=== PATIENT | male | born 1955 | race Caucasian/White ===

== ENCOUNTER 2018-11-17 16:16 | Outpatient (REF) | payer BC, SELFPAY ==
[2018-11-17 22:52] LABS: COMMENT (LAB VIEW ONLY) 154.57 mg/dL; Microalb ug/mg Crea 14.3 ug/mg Cr
== END 2018-11-17 16:36 ==
LOC: NCHCN 16:16
PROVIDERS: PCP Internal Medicine; Visit Provider Family Medicine
DX: E11.9 Type 2 diabetes mellitus without complications (principal)
CPT/HCPCS: 82043; 82570

== ENCOUNTER 2019-04-07 13:25 | Outpatient (REF) | payer BC, SELFPAY ==
[2019-04-07 21:23] LABS: Anion Gap 12.4 mmol/L (3-11); BUN 14 mg/dL (7-18); CO2 24.6 mmol/L (21.0-32.0); CREATININE 1.04 mg/dL (0.70-1.30); Calcium 8.8 mg/dL (8.5-10.1); Chloride 102 mmol/L (98-107); Glucose 121 mg/dL (70-100); Potassium 4.1 mmol/L (3.5-5.1); Sodium 139 mmol/L (136-145)
== END 2019-04-07 13:45 ==
LOC: NCHCN 13:25
PROVIDERS: PCP Internal Medicine; Visit Provider Family Medicine
DX: I10 Essential (primary) hypertension (principal)
CPT/HCPCS: 80048

== ENCOUNTER 2019-12-15 09:46 | Outpatient (REF) | payer BC, SELFPAY ==
[2019-12-15 22:13] LABS: Hemoglobin A1C 6.8 % (3.8-5.6)
[2019-12-15 22:15] LABS: ALT 26 U/L (16-63); AST 18 U/L (15-37); Alkaline Phosphatase 44 U/L (46-116); Anion Gap 11.3 mmol/L (3-11); BUN 22 mg/dL (7-18); Bilirubin, Total 0.7 mg/dL (0.2-1.0); CO2 24.7 mmol/L (21.0-32.0); CREATININE 1.15 mg/dL (0.70-1.30); Calculated LDL 76 mg/dL (<100); Chloride 104 mmol/L (98-107); Cholesterol 148 mg/dL (<200); Glucose 191 mg/dL (74-106); HDL Cholesterol 57 mg/dL (40-60); Potassium 4.8 mmol/L (3.5-5.1); Sodium 140 mmol/L (136-145); Total Protein 6.7 g/dL (6.4-8.2); Triglyceride 75 mg/dL (<150)
== END 2019-12-15 10:06 ==
LOC: NCHCN 09:46
PROVIDERS: PCP Internal Medicine; Visit Provider Family Medicine
DX: E11.9 Type 2 diabetes mellitus without complications (principal); I10 Essential (primary) hypertension
CPT/HCPCS: 80053; 80061; 83036

== ENCOUNTER 2020-10-04 10:15 | Outpatient (REF) | payer BC, SELFPAY ==
[2020-10-04 13:39] LABS: COMMENT (LAB VIEW ONLY) 122.89 mg/dL; Microalb ug/mg Crea 8.9 ug/mg Cr
== END 2020-10-04 10:16 | disposition home or self-care (01) ==
LOC: NCHCN 10:15
PROVIDERS: PCP Internal Medicine; Visit Provider Family Medicine
DX: E11.69 Type 2 diabetes mellitus with other specified complication (principal)
CPT/HCPCS: 82043; 82570

== ENCOUNTER 2021-02-03 18:49 | Outpatient (REF) | payer OTHER, SELFPAY ==
[2021-02-01 22:14] LABS: ALT 37 U/L (16-63); AST 15 U/L (15-37); Albumin 4.4 g/dL (3.4-5.0); Alkaline Phosphatase 61 U/L (46-116); Anion Gap 14.9 mmol/L (3-11); BUN 16 mg/dL (7-18); Bilirubin, Total 0.6 mg/dL (0.2-1.0); CO2 22.1 mmol/L (21.0-32.0); CREATININE 1.2 mg/dL (0.70-1.30); Calcium 9.5 mg/dL (8.5-10.1); Calculated LDL 87 mg/dL (<100); Chloride 103 mmol/L (98-107); Cholesterol 168 mg/dL (<200); Glucose 125 mg/dL (74-106); HDL Cholesterol 53 mg/dL (40-60); Potassium 4.1 mmol/L (3.5-5.1); Sodium 140 mmol/L (136-145); Total Protein 7.3 g/dL (6.4-8.2); Triglyceride 143 mg/dL (<150); Vitamin B12 577 pg/mL (193-986)
== END 2021-02-03 18:50 | disposition home or self-care (01) ==
LOC: NCHCN 18:49
PROVIDERS: PCP Internal Medicine; Visit Provider Family Medicine
DX: I10 Essential (primary) hypertension (principal); E66.9 Obesity, unspecified; E11.65 Type 2 diabetes mellitus with hyperglycemia
CPT/HCPCS: 80053; 80061; 82607

== ENCOUNTER 2021-08-29 17:55 | Outpatient (REF) | payer OTHER, SELFPAY ==
[2021-08-29 20:27] LABS: COMMENT (LAB VIEW ONLY) 207.46 mg/dL
== END 2021-08-29 17:56 | disposition home or self-care (01) ==
LOC: NCHCN 17:55
PROVIDERS: PCP Internal Medicine; Visit Provider Family Medicine
DX: E11.8 Type 2 diabetes mellitus with unspecified complications (principal)
CPT/HCPCS: 82043; 82570

== ENCOUNTER 2022-01-04 09:42 | Emergency (ER) | payer OTHER, SELFPAY ==
[2022-01-04 09:59] VITALS: BP 149/69; PULSE 95; RESP 16; TEMP 37.1; O2SAT 99
--- NOTE | 2022-01-04 10:27 | ED.GENADUL_ITS ---
Discharge Plan Disposition Patient Disposition: HOME Condition: Stable Discharge Details Clinical Impression: Subconjunctival hemorrhage Primary Care Provider: [facility] ED Provider: Rahul Rowland Home Meds and New Rx's Prescriptions: Continued atorvastatin 20 mg Tablet 20 mg PO DAILY amlodipine 5 mg Tablet 5 mg PO DAILY losartan-hydrochlorothiazide 100-25 mg Tablet 1 tab PO DAILY metformin 1,000 mg Tablet 1,000 mg PO BID insulin glargine [Lantus Solostar U-100 Insulin] 100 unit/mL (3 mL) Insulin Pen 38 unit SUBCUT QAM Ozempic 1 mg/dose (4 mg/3 mL) Pen Injector 1 mg SUBCUT QWEEK multivitamin Tablet 1 tab PO DAILY cholecalciferol (vitamin D3) [Vitamin D3] 10 mcg (400 unit) Tablet 600 unit PO DAILY Discharge Instructions Instructions: Subconjunctival Hemorrhage (ED) Additional Instructions: Please avoid rubbing your eyes. You may use [id number] eyedrops for symptomatic control as directed. Watch for new or worsening symptoms and return to the ER for any concerns. I do recommend reaching out to your my care team on Thursday to discuss your ER visit and need for outpatient reevaluation Medical Decision Making 66-year-old gentleman, not anticoagulated, presents for evaluation of a red eye on the right side that began after he blew his nose. He denies any pain or visual changes. He reports mild irritation. He denies gum bleeding when he brushes his teeth, petechiae rash, blood in his urine or stool. Clinically he appears well, nontoxic. Visual acuities obtained, please see RN note. Again he denies any visual changes. He does not wear contacts or glasses. Fluorescein used, no uptake. Examination is consistent with a subconjunctival hemorrhage. Standard discharge and return precautions were provided. Patient understands, is agreeable to this plan, and has no additional questions or concerns upon discharge. This documentation was generated using [employer] system, please disregard any oddities of phrase or misspellings. HPI General Mode of arrival: ambulatory . Date/Time Provider Initiated Documentation: 01/04/22 10:18 . Limitations to Documentation: no limitations . Information obtained by: patient . History of Present Illness 66 year old M pr esents to the emergency department with the chief complaint of R eye irritation, described as mild, with intensity rated at 2. Quality is described as other (Irritation), and is localized to the eyes and right. Patient reports no radiation. Patient started experiencing this hour(s) (1.5) and it has been constant. No relieving factors improve symptom(s), No exacerbating factors reported . Patient notes no other symptoms.. Patient did receive the following treatments prior to arrival, none Related Data Home Medications Medication Instructions Recorded Confirmed amlodipine 5 mg tablet 5 mg PO DAILY 01/04/22 01/04/22 atorvastatin 20 mg tablet 20 mg PO DAILY 01/04/22 01/04/22 cholecalciferol (vitamin D3) 10 600 unit PO DAILY 01/04/22 01/04/22 mcg (400 unit) tablet (Vitamin D3) insulin glargine 100 unit/mL (3 38 unit subcut QAM 01/04/22 01/04/22 mL) subcutaneous pen (Lantus Solostar U-100 Insulin) losartan 100 1 tab PO DAILY 01/04/22 01/04/22 mg-hydrochlorothiazide 25 mg tablet metformin 1,000 mg tablet 1,000 mg PO BID 01/04/22 01/04/22 multivitamin 1 tab PO DAILY 01/04/22 01/04/22 semaglutide 1 mg/dose (4 mg/3 mL) 1 mg subcut QWEEK 01/04/22 01/04/22 subcutaneous pen injector (Ozempic) Allergies Allergy/AdvReac Type Severity Reaction Status Date / Time No Known Allergies Allergy Unverified 01/04/22 10:23 General Stated Complaint: EyeProblem ISABELLA: 4 Review of Systems Constitutional Constitutional: Denies headache(s) Eyes Eyes: Denies blurry vision, Denies change in vision, Denies eye discharge, Reports irritation and Denies eye pain ENT Ears, Nose, Mouth, and Throat: Denies headache(s) Integumentary/Breasts Skin/Breast: Denies rash Neurologic Neurologic: Denies headache(s) Hematologic/Lymphatic Hematologic/Lymphatic: Denies easy bleeding and Reports easy bruising PFSH All Active Problems Subconjunctival hemorrhage (Acute) Social History Smoking/Tobacco Use Status: Never Smoking risk assessment performed?: Yes Drug use: Occasionally Substance use type: marijuana Additional Social history: unable to ask d/t lack of privacy Exam Const General: cooperative, healthy appearing, comfortable and no acute distress Orientation: alert, awake and oriented x3 HENMT Head: normal to inspection, normocephalic and atraumatic Face and sinus: normal facial exam Mouth: moist mucous membranes Eyes Alignment and Position: alignment normal Periorbital: periorbital findings normal Eyelids: eyelids normal Conjunctivae: conjunctival abnormality right subconjunctival hemorrhage Sclera: sclerae normal Cornea: corneas normal and fluorescein used Pupils: PERRL EOM: EOM intact bilaterally Direct ophthalmoscopy: normal light reflex Neck Neck: normal visual inspection, full ROM, no meningeal signs, trachea midline and supple Resp Effort & Inspection: normal respiratory effort and able to speak in complete sentences Skin General skin exam: no rashes or lesions noted and other (No petechiae rash) Neuro General: patient alert, patient awake, moves all extremities and no focal motor deficits Sensory Exam: no sensory deficits noted Psych Appearance: grossly normal Mental Status: mental status grossly normal Course Vital Signs Vital signs: Pain Level 0 01/04/22 09:59
== END 2022-01-04 11:07 | disposition home or self-care (01) ==
PROVIDERS: Emergency Provider Physician Assistant; PCP Internal Medicine
DX: H11.31 Conjunctival hemorrhage, right eye (principal)
CPT/HCPCS: 99282

== ENCOUNTER 2022-02-27 21:04 | Outpatient (REF) | payer OTHER, SELFPAY ==
[2022-02-27 15:37] LABS: Abs Immature Grans 0.05 10^3/uL (0.0-0.06); Absolute Basophil Count 0.03 10^3/uL (0.0-0.2); Absolute Eosinophil Count 0.05 10^3/uL (0.0-0.7); Absolute Lymphocyte Count 1.68 10^3/uL (1.2-3.4); Absolute Monocyte Count 0.55 10^3/uL (0.1-0.8); Absolute Neutrophil Count 5.51 10^3/uL (1.2-6.7); Basophils % 0.4; Eosinophils % 0.6; HGB 13.8 g/dL (13.5-17.5); Immature Grans % 0.6; Lymphocytes % 21.3; MCH 30.4 pg (27.0-33.0); MCHC 34.5 % (32.0-36.0); MCV 88 fL (80-95); MPV 10.5 fL (8.0-11.0); Neutrophils % 70.1; Platelet Count 206 10^3/uL (130-400); RBC 4.54 10^6/uL (4.36-5.78); RDW 12.5 % (11.8-14.1); RDW-SD 40.3 fL; WBC 7.87 10^3/uL (4.4-10.8)
[2022-02-27 16:16] LABS: ALT 35 U/L (16-63); AST 20 U/L (15-37); Alkaline Phosphatase 46 U/L (46-116); Anion Gap 9.3 mmol/L (3-11); BUN 20 mg/dL (7-18); CO2 25.7 mmol/L (21.0-32.0); CREATININE 1.3 mg/dL (0.70-1.30); Calcium 9.5 mg/dL (8.5-10.1); Calculated LDL 65 mg/dL (<100); Chloride 104 mmol/L (98-107); Cholesterol 147 mg/dL (<200); Estimated GFR 61.35 (mL/min/1.73m2); Glucose 107 mg/dL (74-106); HDL Cholesterol 67 mg/dL (40-60); Potassium 4.2 mmol/L (3.5-5.1); Sodium 139 mmol/L (136-145); Total Protein 7.1 g/dL (6.4-8.2); Triglyceride 77 mg/dL (<150)
== END 2022-02-27 21:05 | disposition home or self-care (01) ==
LOC: NCHCN 21:04
PROVIDERS: PCP Internal Medicine; Visit Provider Family Medicine
DX: I10 Essential (primary) hypertension (principal); E11.8 Type 2 diabetes mellitus with unspecified complications; Z00.00 Encounter for general adult medical examination without abnormal findings; R23.8 Other skin changes
CPT/HCPCS: 80053; 80061; 85025

== ENCOUNTER 2022-11-13 16:08 | Outpatient (REF) | payer OTHER, SELFPAY ==
--- OUTSIDE RECORDS SUMMARY | 2022-11-13 16:12 | XMS_ITS | CCD ---
Author Name Unknown Address [address] [place] [address] [id number] Organization Unknown Address [address] [place] [address] [id number] Care Team Providers Care Manager Heavy Duty Name Role Phone LUIS WHITEHEAD Attending Physician [phone] Vital Signs Unknown or Not Available. Allergies Unknown or Not Available. Procedures Unknown or Not Available. History of Immunizations Unknown or Not Available. Problems Unknown or Not Available. Results Unknown or Not Available. Active Medications Unknown or Not Available. Medications Administered During Visit Unknown or Not Available. Encounters Encounter Diagnosis Diagnosis Code Start Date Bilateral primary osteoarthritis of knee M170 10/09/2021 Social History Smoking Status Code Start Date End Date Never smoker [id number] Patient Decision Aids Unknown or Not Available. Discharge Instructions You were admitted to [facility] on 10/09/2021 14:12 with a principal diagnosis of Bilateral primary osteoarthritis of knee You were discharged from [facility] on 10/09/2021 14:12 Should you have any questions prior to discharge, please contact a member of your healthcare team. If you have left the hospital and have any questions, please contact your primary care physician. Chief Complaint and Reason For Visit Chief Complaint Date of Onset KNEE PAIN Function Status Unknown or Not Available. Plan of Care Unknown or Not Available. Referral/Transition of Care Unknown or Not Available.
--- OUTSIDE RECORDS SUMMARY | 2022-11-13 16:12 | XMS_ITS | CCD ---
Author Name Unknown Address [address] [place] [address] [id number] Organization Unknown Address [address] [place] [address] [id number] Care Team Providers Care Cut Off Sawyer Log Name Role Phone LICO WHITING Attending Physician [phone] LICO WHITING Rounding (Secondary) Physician [phone] Vital Signs Unknown or Not Available. Allergies Unknown or Not Available. Procedures Unknown or Not Available. History of Immunizations Unknown or Not Available. Problems Unknown or Not Available. Results Unknown or Not Available. Active Medications Unknown or Not Available. Medications Administered During Visit Unknown or Not Available. Encounters Encounter Diagnosis Diagnosis Code Start Date Idiopathic osteoarthritis [id number] 2021 Social History Smoking Status Code Start Date End Date Never smoker [id number] Patient Decision Aids Unknown or Not Available. Discharge Instructions You were admitted to [facility] on 03/13/2022 10:21 with a principal diagnosis of Bilateral primary osteoarthritis of knee You were discharged from [facility] on 03/13/2022 00:00 Should you have any questions prior to discharge, please contact a member of your healthcare team. If you have left the hospital and have any questions, please contact your primary care physician. Chief Complaint and Reason For Visit Unknown or Not Available. Function Status Unknown or Not Available. Plan of Care Unknown or Not Available. Referral/Transition of Care Unknown or Not Available.
[2022-11-13 20:56] LABS: Microalb ug/mg Crea 7.9 ug/mg Cr
== END 2022-11-13 16:09 | disposition home or self-care (01) ==
LOC: NCHCN 16:08
PROVIDERS: PCP Internal Medicine; Visit Provider Family Medicine
DX: E11.9 Type 2 diabetes mellitus without complications (principal)
CPT/HCPCS: 82043; 82570

== ENCOUNTER 2023-05-29 10:06 | Outpatient (REF) | payer OTHER, SELFPAY ==
[2023-05-29 15:12] LABS: ALT 27 U/L (16-63); AST 21 U/L (15-37); Albumin 3.6 g/dL (3.4-5.0); Alkaline Phosphatase 38 U/L (46-116); Anion Gap 7.3 mmol/L (3-11); BUN 24 mg/dL (7-18); Bilirubin, Total 0.5 mg/dL (0.2-1.0); CO2 25.7 mmol/L (21.0-32.0); CREATININE 1.4 mg/dL (0.70-1.30); Calcium 9.2 mg/dL (8.5-10.1); Calculated LDL 77 mg/dL (<100); Chloride 103 mmol/L (98-107); Cholesterol 159 mg/dL (<200); Estimated GFR 55.43 (mL/min/1.73m2); Glucose 135 mg/dL (74-106); HDL Cholesterol 74 mg/dL (40-60); Potassium 4.2 mmol/L (3.5-5.1); Sodium 136 mmol/L (136-145); Total Protein 6.8 g/dL (6.4-8.2); Triglyceride 42 mg/dL (<150)
[2023-05-29 15:38] LABS: Hemoglobin A1C 5.7 % (<5.7)
== END 2023-05-29 10:07 | disposition home or self-care (01) ==
LOC: NCHCN 10:06
PROVIDERS: PCP Internal Medicine; Visit Provider Family Medicine
DX: Z00.00 Encounter for general adult medical examination without abnormal findings (principal); E11.8 Type 2 diabetes mellitus with unspecified complications; I10 Essential (primary) hypertension; R79.89 Other specified abnormal findings of blood chemistry
CPT/HCPCS: 80053; 80061; 83036

== ENCOUNTER 2023-09-10 16:13 | Outpatient (REF) | payer OTHER, SELFPAY ==
[2023-09-10 16:58] LABS: COMMENT (LAB VIEW ONLY) 127.88 mg/dL; Microalb ug/mg Crea 9.5 ug/mg Cr
== END 2023-09-10 16:14 | disposition home or self-care (01) ==
LOC: NCHCN 16:13
PROVIDERS: PCP Internal Medicine; Visit Provider Family Medicine
DX: E11.69 Type 2 diabetes mellitus with other specified complication (principal)
CPT/HCPCS: 82043; 82570

== ENCOUNTER 2024-03-10 16:19 | Outpatient (REF) | payer OTHER, SELFPAY ==
[2024-03-10 21:55] LABS: Microalb ug/mg Crea 17.2 ug/mg Cr
== END 2024-03-10 16:20 | disposition home or self-care (01) ==
LOC: NCHCN 16:19
PROVIDERS: PCP Internal Medicine; Visit Provider Family Medicine
DX: E11.69 Type 2 diabetes mellitus with other specified complication (principal)
CPT/HCPCS: 82043; 82570

== ENCOUNTER 2024-06-10 09:58 | Outpatient (REF) | payer OTHER, SELFPAY ==
[2024-06-10 14:23] LABS: Hemoglobin A1C 7.1 % (<5.7)
[2024-06-10 14:41] LABS: ALT 24 U/L (16-63); AST 20 U/L (15-37); Albumin 3.5 g/dL (3.4-5.0); Alkaline Phosphatase 47 U/L (46-116); Anion Gap 12.7 mmol/L (3-11); BUN 22 mg/dL (7-18); Bilirubin, Total 0.54 mg/dL (0.2-1.0); CO2 21.3 mmol/L (21.0-32.0); CREATININE 1.4 mg/dL (0.70-1.30); Calcium 9.2 mg/dL (8.5-10.1); Calculated LDL 72 mg/dL (<100); Chloride 107 mmol/L (98-107); Cholesterol 145 mg/dL (<200); Estimated GFR 55.09 (mL/min/1.73m2); Glucose 153 mg/dL (74-106); HDL Cholesterol 58 mg/dL (40-60); Potassium 4.1 mmol/L (3.5-5.1); Sodium 141 mmol/L (136-145); Total Protein 6.6 g/dL (6.4-8.2); Triglyceride 75 mg/dL (<150)
== END 2024-06-10 09:59 | disposition home or self-care (01) ==
LOC: NCHCN 09:58
PROVIDERS: PCP Internal Medicine; Visit Provider Family Medicine
DX: I10 Essential (primary) hypertension (principal); E11.69 Type 2 diabetes mellitus with other specified complication; R58 Hemorrhage, not elsewhere classified
CPT/HCPCS: 80053; 80061; 83036; 85610